=== PATIENT | female | born 1990 | race Caucasian/White ===

== ENCOUNTER 2017-08-11 06:34 | Emergency (ER) | payer MEDICAID ==
[2017-08-11] MEDS ORDERED: Sodium Chloride 0.9% 1,000 ML IV ONE (07:07)
[2017-08-11] MEDS ORDERED: Sodium Chloride 0.9% 10 ML Syringe FLUSH PRN (07:07)
[2017-08-11] MEDS ORDERED: Ondansetron 4 MG/2 ML SDV IVPUSH ONE (07:07)
[2017-08-11] MEDS ORDERED: Sodium Chloride 0.9% 2.5 ML Syringe FLUSH PRN (07:07)
--- NOTE | 2017-08-11 07:09 | EDM.PDOC ---
ED HPI GENERAL MEDICAL PROBLEM - General Chief Complaint: Abdominal Pain Stated Complaint: STOMACH PAIN Time Seen by Provider: 08/11/17 07:04 - History of Present Illness INITIAL COMMENTS - FREE TEXT/NARRATIVE: HISTORY AND PHYSICAL: History of present illness: The patient is a healthy 26 y/o female who presents with diffuse abdominal cramping vomiting and diarrhea that started about 12 midnight. She has no ill contacts at home and had no exotic travel or new foods that she can recall. Patient has no GI or history and has no abdominal surgical history. She says the pain is crampy and as all over and does not localize upper or lower right or left. She has no urinary complaints. Her vomiting is mostly of the food that she ate earlier it is not black or bloody and the diarrhea is watery but it is not black or bloody. Patient took no medications prior to coming here. Review of systems: As per history of present illness and below otherwise all systems reviewed and negative. Past medical history: As per history of present illness and as reviewed below otherwise noncontributory. Surgical history: As per history of present illness and as reviewed below otherwise noncontributory. Social history: No reported history of drug or alcohol abuse. Family history: As per history of present illness and as reviewed below otherwise noncontributory. Physical exam: General: Well-developed well-nourished overweight female who is nontoxic and vital signs are reviewed by me HEENT: Atraumatic, normocephalic, pupils reactive, negative for conjunctival pallor or scleral icterus, mucous membranes Accu throat clear, neck supple, nontender, trachea midline. Lungs: Clear to auscultation, breath sounds equal bilaterally, chest nontender. Heart: S1S2, regular rate and rhythm no overt murmurs Abdomen: Soft, nondistended, nontender. On palpation there is no discrete area of tenderness but there is some diffuse very mild tenderness on deep palpation without rebound or guarding. Bowel sounds are hyperactive Negative for masses or hepatosplenomegaly. Negative for costovertebral tenderness. Pelvis: Stable nontender. Genitourinary: Deferred. Rectal: Deferred. Extremities: Atraumatic, negative for cords or calf pain. Neurovascular unremarkable. Neuro: Awake, alert, oriented. Cranial nerves II through XII unremarkable. Cerebellum unremarkable. Motor and sensory unremarkable throughout. Exam nonfocal. Diagnostics: CBC CMP UA hCG amylase and lipase Therapeutics: IV fluids Zofran Toradol Bentyl She feels much improved and will be taking by mouth sips. She is aware of all testing results and care plan for home. Impression: Vomiting and diarrhea/abdominal cramping improved Definitive disposition and diagnosis as appropriate pending reevaluation and review of above. Abdomen Pain Score (Numeric/FACES): 10 - Related Data Allergies Allergy/AdvReac Type Severity Reaction Status Date / Time No Known Allergies Allergy Verified 08/11/17 06:46 Home Meds: Home Meds . [No Known Home Meds] 08/11/17 [History] Past Medical History HEENT History: Reports: None Cardiovascular History: Reports: None Respiratory History: Reports: None Gastrointestinal History: Reports: None Genitourinary History: Reports: None [employer] History: Reports: Musculoskeletal History: Reports: None Neurological History: Reports: None Psychiatric History: Reports: None Endocrine/Metabolic History: Reports: None Hematologic History: Reports: None Immunologic History: Reports: None Oncologic (Cancer) History: Reports: None Dermatologic History: Reports: None - Infectious Disease History Infectious Disease History: Reports: None - Past Surgical History Head Surgeries/Procedures: Reports: None Social & Family History - Family History Family Medical History: Noncontributory - Tobacco Use Smoking Status *Q: Never Smoker - Caffeine Use Caffeine Use: Reports: Coffee - Recreational Drug Use Recreational Drug Use: No ED ROS GENERAL - Review of Systems Review Of Systems: ROS reveals no pertinent complaints other than HPI. ED EXAM, GENERAL - Physical Exam Exam: See Below (See dictation) Course - Vital Signs Last Recorded V/S: Last Vital Signs Temp 36.2 C 08/11/17 06:40 Pulse 81 08/11/17 06:40 Resp 18 08/11/17 06:40 BP 139/90 08/11/17 06:40 Pulse Ox 98 08/11/17 06:40 - Orders/Labs/Meds Orders: Active Orders 24 hr Category Date Time Status UA W/MICROSCOPIC [URIN] Stat Lab 08/11/17 08:04 Ordered Sodium Chloride 0.9% [Saline Flush] Med 08/11/17 07:07 Active 10 ml FLUSH ASDIRECTED PRN Sodium Chloride 0.9% [Saline Flush] Med 08/11/17 07:07 Active 2.5 ml FLUSH ASDIRECTED PRN Saline Lock Insert [OM.PC] Stat Oth 08/11/17 07:06 Ordered Medication Orders Sodium Chloride (Saline Flush) 10 ml FLUSH ASDIRECTED PRN PRN Reason: Keep Vein Open Last Admin: 08/11/17 07:20 Dose: 10 ml Sodium Chloride (Saline Flush) 2.5 ml FLUSH ASDIRECTED PRN PRN Reason: Keep Vein Open Last Admin: 08/11/17 07:20 Dose: 2.5 ml Labs: Laboratory Tests 08/11/17 08/11/17 08/11/17 Range/Units 06:45 06:45 06:45 WBC 4.62 (4.0-11.0) K/uL RBC 5.29 (4.30-5.90) M/uL Hgb 15.3 (12.0-16.0) g/dL Hct 44.7 (36.0-46.0) % MCV 84.5 (80.0-98.0) fL MCH 28.9 (27.0-32.0) pg MCHC 34.2 (31.0-37.0) g/dL RDW Std Deviation 39.9 (28.0-62.0) fl RDW Coeff of Mary Grace 13 (11.0-15.0) % Plt Count 259 (150-400) K/uL MPV 11.20 (7.40-12.00) fL Neut % (Auto) 45.3 L (48.0-80.0) % Lymph % (Auto) 43.7 H (16.0-40.0) % [place] % (Auto) 9.5 (0.0-15.0) % Eos % (Auto) 1.3 (0.0-7.0) % Baso % (Auto) 0.2 (0.0-1.5) % Neut # (Auto) 2.1 (1.4-5.7) K/uL Lymph # (Auto) 2.0 (0.6-2.4) K/uL [place] # (Auto) 0.4 (0.0-0.8) K/uL Eos # (Auto) 0.1 (0.0-0.7) K/uL Baso # (Auto) 0.0 (0.0-0.1) K/uL Nucleated RBC % 0.0 /100WBC Nucleated RBCs # 0 K/uL Sodium 139 (136-145) mmol/L Potassium 3.9 (3.5-5.1) mmol/L Chloride 103 (98-107) mmol/L Carbon Dioxide 25.3 (21.0-32.0) mmol/L BUN 14 (7.0-18.0) mg/dL Creatinine 0.8 (0.6-1.0) mg/dL Est Cr Clr Drug Dosing 95.89 mL/min Estimated GFR (MDRD) > 60.0 ml/min Glucose 132 H (74-106) mg/dL Calcium 9.7 (8.5-10.1) mg/dL Total Bilirubin 0.5 (0.2-1.0) mg/dL AST 26 (15-37) IU/L ALT 32 (14-63) IU/L Alkaline Phosphatase 49 (46-116) U/L Total Protein 8.1 (6.4-8.2) g/dL Albumin 4.1 (3.4-5.0) g/dL Globulin 4.0 H (2.0-3.5) g/dL Albumin/Globulin Ratio 1.0 L (1.3-2.8) Amylase 89 (25-115) U/L Lipase 147 (73-393) U/L HCG, Qual NEGATIVE (NEG) Urine Color Urine Appearance Urine pH (5.0-8.0) Ur Specific [place] (1.001-1.035) Urine Protein (NEGATIVE) mg/dL Urine Glucose (UA) (NEGATIVE) mg/dL Urine Ketones (NEGATIVE) mg/dL Urine Occult Blood (NEGATIVE) Urine Nitrite (NEGATIVE) Urine Bilirubin (NEGATIVE) Urine Urobilinogen (<2.0) EU/dL Ur Leukocyte Esterase (NEGATIVE) Urine RBC (0-2/HPF) Urine WBC (0-5/HPF) Ur Epithelial Cells (NONE-FEW) Amorphous Sediment (NEGATIVE) Urine Bacteria (NEGATIVE) Urine Mucus (NONE-MOD) 08/11/17 Range/Units 08:04 WBC (4.0-11.0) K/uL RBC (4.30-5.90) M/uL Hgb (12.0-16.0) g/dL Hct (36.0-46.0) % MCV (80.0-98.0) fL MCH (27.0-32.0) pg MCHC (31.0-37.0) g/dL RDW Std Deviation (28.0-62.0) fl RDW Coeff of Mary Grace (11.0-15.0) % Plt Count (150-400) K/uL MPV (7.40-12.00) fL Neut % (Auto) (48.0-80.0) % Lymph % (Auto) (16.0-40.0) % [place] % (Auto) (0.0-15.0) % Eos % (Auto) (0.0-7.0) % Baso % (Auto) (0.0-1.5) % Neut # (Auto) (1.4-5.7) K/uL Lymph # (Auto) (0.6-2.4) K/uL [place] # (Auto) (0.0-0.8) K/uL Eos # (Auto) (0.0-0.7) K/uL Baso # (Auto) (0.0-0.1) K/uL Nucleated RBC % /100WBC Nucleated RBCs # K/uL Sodium (136-145) mmol/L Potassium (3.5-5.1) mmol/L Chloride (98-107) mmol/L Carbon Dioxide (21.0-32.0) mmol/L BUN (7.0-18.0) mg/dL Creatinine (0.6-1.0) mg/dL Est Cr Clr Drug Dosing mL/min Estimated GFR (MDRD) ml/min Glucose (74-106) mg/dL Calcium (8.5-10.1) mg/dL Total Bilirubin (0.2-1.0) mg/dL AST (15-37) IU/L ALT (14-63) IU/L Alkaline Phosphatase (46-116) U/L Total Protein (6.4-8.2) g/dL Albumin (3.4-5.0) g/dL Globulin (2.0-3.5) g/dL Albumin/Globulin Ratio (1.3-2.8) Amylase (25-115) U/L Lipase (73-393) U/L HCG, Qual (NEG) Urine Color YELLOW Urine Appearance CLEAR Urine pH 6.0 (5.0-8.0) Ur Specific [place] 1.025 (1.001-1.035) Urine Protein NEGATIVE (NEGATIVE) mg/dL Urine Glucose (UA) NEGATIVE (NEGATIVE) mg/dL Urine Ketones NEGATIVE (NEGATIVE) mg/dL Urine Occult Blood NEGATIVE (NEGATIVE) Urine Nitrite NEGATIVE (NEGATIVE) Urine Bilirubin NEGATIVE (NEGATIVE) Urine Urobilinogen 0.2 (<2.0) EU/dL Ur Leukocyte Esterase NEGATIVE (NEGATIVE) Urine RBC NONE SEEN (0-2/HPF) Urine WBC 0-1 (0-5/HPF) Ur Epithelial Cells FEW (NONE-FEW) Amorphous Sediment NOT SEEN (NEGATIVE) Urine Bacteria NOT SEEN (NEGATIVE) Urine Mucus LIGHT (NONE-MOD) Meds: Medications Generic Name Dose Route Start Last Admin Trade Name Freq PRN Reason Stop Dose Admin Sodium Chloride 10 ml 08/11/17 07:07 08/11/17 07:20 Saline Flush FLUSH 10 ml ASDIRECTED PRN Administration Keep Vein Open Sodium Chloride 2.5 ml 08/11/17 07:07 08/11/17 07:20 Saline Flush FLUSH 2.5 ml ASDIRECTED PRN Administration Keep Vein Open Discontinued Medications Generic Name Dose Route Start Last Admin Trade Name Freq PRN Reason Stop Dose Admin Dicyclomine HCl 20 mg 08/11/17 07:35 08/11/17 07:42 Bentyl PO 08/11/17 07:36 20 mg ONETIME ONE Administration Sodium Chloride 1,000 mls @ 999 mls/hr 08/11/17 07:07 08/11/17 07:19 Normal Saline IV 08/11/17 08:07 999 mls/hr STAT ONE Administration Ketorolac Tromethamine 30 mg 08/11/17 07:35 08/11/17 07:42 Toradol IVPUSH 08/11/17 07:36 30 mg ONETIME ONE Administration Ondansetron HCl 4 mg 08/11/17 07:07 08/11/17 07:19 Zofran IVPUSH 08/11/17 07:08 4 mg ONETIME ONE Administration Departure - Departure Time of Disposition: 09:32 Disposition: Home, Self-Care 01 Condition: Good Clinical Impression: Abdominal pain Qualifiers: Abdominal location: generalized Qualified Code(s): R10.84 - Generalized abdominal pain Diarrhea Qualifiers: Diarrhea type: unspecified type Qualified Code(s): R19.7 - Diarrhea, unspecified Vomiting Qualifiers: Vomiting type: unspecified Vomiting Intractability: non-intractable Nausea presence: with nausea Qualified Code(s): R11.2 - Nausea with vomiting, unspecified - Discharge Information Forms: ED Department Discharge Additional Instructions: The following information is given to patients seen in the emergency department who are being discharged to home. This information is to outline your options for follow-up care. We provide all patients seen in our emergency department with a follow-up referral. The need for follow-up, as well as the timing and circumstances, are variable depending upon the specifics of your emergency department visit. If you don't have a primary care physician on staff, we will provide you with a referral. We always advise you to contact your personal physician following an emergency department visit to inform them of the circumstance of the visit and for follow-up with them and/or the need for any referrals to a consulting specialist. The emergency department will also refer you to a specialist when appropriate. This referral assures that you have the opportunity for followup care with a specialist. All of these measure are taken in an effort to provide you with optimal care, which includes your followup. Under all circumstances we always encourage you to contact your private physician who remains a resource for coordinating your care. When calling for followup care, please make the office aware that this follow-up is from your recent emergency room visit. If for any reason you are refused follow-up, please contact the [facility] emergency department at and ask to speak to the emergency department charge nurse. [facility] Primary care- [place] [address] Please push sips of clear liquids and bland bites of food today and use medications as needed and directed. Avoid caffeinated products and heavy foods and creamy foods. Return to ER as needed and as discussed. Expect the symptoms to slowly improve over the next 12-24 hours. Please call and connect with one of our clinic providers in the next few days for reevaluation and further care - My Orders Last 24 Hours: My Active Orders 08/11/17 07:06 Saline Lock Insert [OM.PC] Stat 08/11/17 07:07 Sodium Chloride 0.9% [Saline Flush] 10 ml FLUSH ASDIRECTED PRN Sodium Chloride 0.9% [Saline Flush] 2.5 ml FLUSH ASDIRECTED PRN 08/11/17 08:04 UA W/MICROSCOPIC [URIN] Stat - Assessment/Plan Last 24 Hours: My Active Orders 08/11/17 07:06 Saline Lock Insert [OM.PC] Stat 08/11/17 07:07 Sodium Chloride 0.9% [Saline Flush] 10 ml FLUSH ASDIRECTED PRN Sodium Chloride 0.9% [Saline Flush] 2.5 ml FLUSH ASDIRECTED PRN 08/11/17 08:04 UA W/MICROSCOPIC [URIN] Stat
[2017-08-11 07:31] LABS: CHLORIDE,CL 103 mmol/L (98-107); SODIUM,NA 139 mmol/L (136-145)
[2017-08-11] MEDS ORDERED: Ketorolac 30 MG/ML SDV IVPUSH ONE (07:35)
[2017-08-11] MEDS ORDERED: Dicyclomine 10 MG Cap PO ONE (07:35)
== END 2017-08-11 09:45 | disposition home or self-care (01) ==
LOC: MW.ED 06:34
DX: R11.2 Nausea with vomiting, unspecified (principal); R10.84 Generalized abdominal pain; R19.7 Diarrhea, unspecified
CPT/HCPCS: 36415; 80053; 81001; 82150; 83690; 84703; 85025; 96361; 96374; 96375; 99284; A9270; J1885; J2405; J7040

== ENCOUNTER 2018-07-11 11:33 | Emergency (ER) | payer BC, MEDICAID ==
--- NOTE | 2018-07-11 11:43 | EDM.PDOC ---
ED HPI GENERAL MEDICAL PROBLEM - General Chief Complaint: Abdominal Pain Stated Complaint: STOMACH CRAMPS Time Seen by Provider: 07/11/18 11:34 Source of Information: Reports: Patient History Limitations: Reports: No Limitations - History of Present Illness INITIAL COMMENTS - FREE TEXT/NARRATIVE: HISTORY AND PHYSICAL: History of present illness: Patient is a 27-year-old female who presents to the emergency room with complaints of pelvic pain that radiates into her low back, irregular menstrual period and nausea. She states she does have a long-standing history of irregular menses associated with abdominal pain. She has seen multiple providers and has had ultrasounds along with lab work for this. She has used hormone therapy in the past, without much relief. She states she currently does not take any medications. Two weeks ago she started light vaginal bleeding, woke up this morning with intense pelvic pain. Patient denies any fever, chills , headache, change in vision, syncope or near syncope. Denies any chest pain, back pain, shortness of breath or cough. Denies any vomiting, diarrhea, constipation or dysuria. Has not noted any blood in urine or stool. Patient has been eating and drinking appropriately. Review of systems: As per history of present illness and below otherwise all systems reviewed and negative. Past medical history: As per history of present illness and as reviewed below otherwise noncontributory. Surgical history: As per history of present illness and as reviewed below otherwise noncontributory. Social history: See social history for further information Family history: As per history of present illness and as reviewed below otherwise noncontributory. Physical exam: General: Well-developed and well-nourished 27-year-old female. Alert and oriented. Nontoxic appearing and in no acute distress. HEENT: Atraumatic, normocephalic, pupils equal and reactive bilaterally, negative for conjunctival pallor or scleral icterus, mucous membranes moist, TMs normal bilaterally, throat clear, neck supple, nontender, trachea midline. No drooling or trismus noted. No meningeal signs. No hot potato voice noted. Lungs: Clear to auscultation, breath sounds equal bilaterally, chest nontender. Heart: S1S2, regular rate and rhythm without overt murmur Abdomen: Soft, nondistended, diffuse low abdominal tenderness. Negative for masses or hepatosplenomegaly. Negative for costovertebral tenderness. Pelvis: Stable nontender. Genitourinary: This was done with consent and a dehydrogenation converter operator at bedside. Rectal: Deferred. Skin: Intact, warm, dry. No lesions or rashes noted. Extremities: Atraumatic, moves all extremities per self without difficulty or deficits, negative for cords or calf pain. Neurovascular unremarkable. Neuro: Awake, alert, oriented. Cranial nerves II through XII unremarkable. Cerebellum unremarkable. Motor and sensory unremarkable throughout. Exam nonfocal. Notes: Patient reports that the last time she had her irregular menses/pelvic pain evaluated was 4-6 months ago in [place]. She states there is a chance of . No concerns of any STI's. She is agreeable to lab work and ultrasound at this time. We'll give her IV fluids and IV medications for comfort. Lab work and ultrasound results are within normal limits. Patient states she does feel better after the IV fluids and medications. We discussed the need for appropriate follow-up with her RN INFORMATICS or primary care provider for further evaluation and management of her irregular menses. Supportive care measures were reviewed and discussed. She voices understanding and is agreeable to plan of care. Denies any further questions or concerns at this time. Diagnostics: CBC, CMP, UA, urine , Transvaginal US Therapeutics: IV fluid, Toradol, Zofran Prescription: Diclofenac (#30) Impression: Dysfunctional Uterine Bleeding Pelvic Pain Plan: 1. Lab work and ultrasound are unremarkable. Please follow-up with your OBGYN as we discussed. 2. Diclofenac as prescribed. Take with food. 3. Return to the ED as needed and as discussed. Definitive disposition and diagnosis as appropriate pending reevaluation and review of above. Abdominal Pain Score (Numeric/FACES): 10 - Related Data Allergies Allergy/AdvReac Type Severity Reaction Status Date / Time No Known Allergies Allergy Verified 07/11/18 11:45 Home Meds: Home Meds Diclofenac Sodium [Voltaren] 75 mg PO BIDMEALS PRN #30 tab.cr 07/11/18 [Rx] Past Medical History - Past Health History Medical/Surgical History: Denies Medical/Surgical History HEENT History: Reports: None Cardiovascular History: Reports: None Respiratory History: Reports: None Gastrointestinal History: Reports: None Genitourinary History: Reports: None RN INFORMATICS History: Reports: Musculoskeletal History: Reports: None Neurological History: Reports: None Psychiatric History: Reports: None Endocrine/Metabolic History: Reports: None Hematologic History: Reports: None Immunologic History: Reports: None Oncologic (Cancer) History: Reports: None Dermatologic History: Reports: None - Infectious Disease History Infectious Disease History: Reports: None - Past Surgical History Head Surgeries/Procedures: Reports: None Social & Family History - Family History Family Medical History: Noncontributory - Caffeine Use Caffeine Use: Reports: Coffee ED ROS GENERAL - Review of Systems Review Of Systems: ROS reveals no pertinent complaints other than HPI. ED EXAM, GI/ABD - Physical Exam Exam: See Below (See dictation) Course - Vital Signs Last Recorded V/S: Last Vital Signs Temp 96.5 F 07/11/18 11:44 Pulse 76 07/11/18 13:47 Resp 18 07/11/18 13:47 BP 150/81 H 07/11/18 13:47 Pulse Ox 98 07/11/18 13:47 - Orders/Labs/Meds Labs: Laboratory Tests 07/11/18 07/11/18 07/11/18 Range/Units 12:05 12:05 12:10 WBC 4.83 (4.0-11.0) K/uL RBC 4.90 (4.30-5.90) M/uL Hgb 14.1 (12.0-16.0) g/dL Hct 42.8 (36.0-46.0) % MCV 87.3 (80.0-98.0) fL MCH 28.8 (27.0-32.0) pg MCHC 32.9 (31.0-37.0) g/dL RDW Std Deviation 42.6 (28.0-62.0) fl RDW Coeff of Mary Grace 13 (11.0-15.0) % Plt Count 227 (150-400) K/uL MPV 11.00 (7.40-12.00) fL Neut % (Auto) 42.5 L (48.0-80.0) % Lymph % (Auto) 45.5 H (16.0-40.0) % [place] % (Auto) 10.1 (0.0-15.0) % Eos % (Auto) 1.7 (0.0-7.0) % Baso % (Auto) 0.2 (0.0-1.5) % Neut # (Auto) 2.1 (1.4-5.7) K/uL Lymph # (Auto) 2.2 (0.6-2.4) K/uL [place] # (Auto) 0.5 (0.0-0.8) K/uL Eos # (Auto) 0.1 (0.0-0.7) K/uL Baso # (Auto) 0.0 (0.0-0.1) K/uL Nucleated RBC % 0.0 /100WBC Nucleated RBCs # 0 K/uL Sodium (136-145) mmol/L Potassium (3.5-5.1) mmol/L Chloride (98-107) mmol/L Carbon Dioxide (21.0-32.0) mmol/L BUN (7.0-18.0) mg/dL Creatinine (0.6-1.0) mg/dL Est Cr Clr Drug Dosing mL/min Estimated GFR (MDRD) ml/min Glucose (74-106) mg/dL Calcium (8.5-10.1) mg/dL Total Bilirubin (0.2-1.0) mg/dL AST (15-37) IU/L ALT (14-63) IU/L Alkaline Phosphatase (46-116) U/L Total Protein (6.4-8.2) g/dL Albumin (3.4-5.0) g/dL Globulin (2.6-4.0) g/dL Albumin/Globulin Ratio (0.9-1.6) Urine Color YELLOW Urine Appearance SLT CLOUDY Urine pH 8.0 (5.0-8.0) Ur Specific [place] 1.020 (1.001-1.035) Urine Protein NEGATIVE (NEGATIVE) mg/dL Urine Glucose (UA) NEGATIVE (NEGATIVE) mg/dL Urine Ketones NEGATIVE (NEGATIVE) mg/dL Urine Occult Blood LARGE H (NEGATIVE) Urine Nitrite NEGATIVE (NEGATIVE) Urine Bilirubin NEGATIVE (NEGATIVE) Urine Urobilinogen 0.2 (<2.0) EU/dL Ur Leukocyte Esterase NEGATIVE (NEGATIVE) Urine RBC 15-20 (0-2/HPF) Urine WBC 0-1 (0-5/HPF) Ur Epithelial Cells MANY (NONE-FEW) Amorphous Sediment MODERATE (NEGATIVE) Urine Bacteria FEW (NEGATIVE) Urine HCG, Qual NEGATIVE (NEGATIVE) 07/11/18 Range/Units 12:10 WBC (4.0-11.0) K/uL RBC (4.30-5.90) M/uL Hgb (12.0-16.0) g/dL Hct (36.0-46.0) % MCV (80.0-98.0) fL MCH (27.0-32.0) pg MCHC (31.0-37.0) g/dL RDW Std Deviation (28.0-62.0) fl RDW Coeff of Mary Grace (11.0-15.0) % Plt Count (150-400) K/uL MPV (7.40-12.00) fL Neut % (Auto) (48.0-80.0) % Lymph % (Auto) (16.0-40.0) % [place] % (Auto) (0.0-15.0) % Eos % (Auto) (0.0-7.0) % Baso % (Auto) (0.0-1.5) % Neut # (Auto) (1.4-5.7) K/uL Lymph # (Auto) (0.6-2.4) K/uL [place] # (Auto) (0.0-0.8) K/uL Eos # (Auto) (0.0-0.7) K/uL Baso # (Auto) (0.0-0.1) K/uL Nucleated RBC % /100WBC Nucleated RBCs # K/uL Sodium 139 (136-145) mmol/L Potassium 3.5 (3.5-5.1) mmol/L Chloride 106 (98-107) mmol/L Carbon Dioxide 25.2 (21.0-32.0) mmol/L BUN 13 (7.0-18.0) mg/dL Creatinine 0.6 (0.6-1.0) mg/dL Est Cr Clr Drug Dosing 116.50 mL/min Estimated GFR (MDRD) > 60.0 ml/min Glucose 89 (74-106) mg/dL Calcium 9.4 (8.5-10.1) mg/dL Total Bilirubin 0.5 (0.2-1.0) mg/dL AST 25 (15-37) IU/L ALT 36 (14-63) IU/L Alkaline Phosphatase 51 (46-116) U/L Total Protein 7.7 (6.4-8.2) g/dL Albumin 3.6 (3.4-5.0) g/dL Globulin 4.1 H (2.6-4.0) g/dL Albumin/Globulin Ratio 0.9 (0.9-1.6) Urine Color Urine Appearance Urine pH (5.0-8.0) Ur Specific [place] (1.001-1.035) Urine Protein (NEGATIVE) mg/dL Urine Glucose (UA) (NEGATIVE) mg/dL Urine Ketones (NEGATIVE) mg/dL Urine Occult Blood (NEGATIVE) Urine Nitrite (NEGATIVE) Urine Bilirubin (NEGATIVE) Urine Urobilinogen (<2.0) EU/dL Ur Leukocyte Esterase (NEGATIVE) Urine RBC (0-2/HPF) Urine WBC (0-5/HPF) Ur Epithelial Cells (NONE-FEW) Amorphous Sediment (NEGATIVE) Urine Bacteria (NEGATIVE) Urine HCG, Qual (NEGATIVE) Meds: Medications Discontinued Medications Generic Name Dose Route Start Last Admin Trade Name Freq PRN Reason Stop Dose Admin Sodium Chloride 1,000 mls @ 999 mls/hr 07/11/18 11:51 07/11/18 12:14 Normal Saline IV 07/11/18 12:51 999 mls/hr STAT ONE Administration Ketorolac Tromethamine 30 mg 07/11/18 11:51 07/11/18 12:15 Toradol IVPUSH 07/11/18 11:52 30 mg ONETIME ONE Administration Ondansetron HCl 4 mg 07/11/18 11:51 07/11/18 12:15 Zofran IVPUSH 07/11/18 11:52 4 mg ONETIME ONE Administration Departure - Departure Time of Disposition: 13:34 Disposition: Home, Self-Care 01 Clinical Impression: Dysfunctional uterine bleeding, Pelvic pain - Discharge Information Prescriptions: Diclofenac Sodium [Voltaren] 75 mg PO BIDMEALS PRN #30 tab.cr PRN Reason: Pain Instructions: Pelvic Pain, Female, [id number], Abnormal Uterine Bleeding, [id number] Referrals: PCP,None [Primary Care Provider] - Forms: ED Department Discharge Additional Instructions: The following information is given to patients seen in the emergency department who are being discharged to home. This information is to outline your options for follow-up care. We provide all patients seen in our emergency department with a follow-up referral. The need for follow-up, as well as the timing and circumstances, are variable depending upon the specifics of your emergency department visit. If you don't have a primary care physician on staff, we will provide you with a referral. We always advise you to contact your personal physician following an emergency department visit to inform them of the circumstance of the visit and for follow-up with them and/or the need for any referrals to a consulting specialist. The emergency department will also refer you to a specialist when appropriate. This referral assures that you have the opportunity for follow-up care with a specialist. All of these measure are taken in an effort to provide you with optimal care, which includes your follow-up. Under all circumstances we always encourage you to contact your private physician who remains a resource for coordinating your care. When calling for follow-up care, please make the office aware that this follow-up is from your recent emergency room visit. If for any reason you are refused follow-up, please contact the [facility] Emergency Department at and asked to speak to the emergency department charge nurse. [facility] [address] [place] [address] [place] [address] 1. Lab work and ultrasound are unremarkable. Please follow-up with your OBGYN or primary care provider as we discussed. 2. Diclofenac as prescribed. Take with food. 3. Return to the ED as needed and as discussed.
[2018-07-11] MEDS ORDERED: Ondansetron 4 MG/2 ML SDV IVPUSH ONE (11:51)
[2018-07-11] MEDS ORDERED: Sodium Chloride 0.9% 1,000 ML IV ONE (11:51)
[2018-07-11] MEDS ORDERED: Ketorolac 30 MG/ML SDV IVPUSH ONE (11:51)
[2018-07-11 12:59] LABS: CHLORIDE,CL 106 mmol/L (98-107); SODIUM,NA 139 mmol/L (136-145)
--- NOTE | 2018-07-11 13:31 | US ---
INDICATION: Pelvic pain for 4 days. Dysfunctional uterine bleeding. TECHNIQUE: Ultrasound pelvis transvaginal. Real time sonographic images with Spectral and color Doppler imaging of the ovaries were obtained. COMPARISON: None FINDINGS: Uterus: Measures 8.4 x 5.3 x 4.2 cm. Normal echotexture of the myometrium. No masses. Endometrium: Normal in thickness measuring 7 mm. No sign of endometrial mass or fluid. Right ovary: Measures 3.6 x 2.1 x 2.6 cm. Multiple small follicles noted. No ovarian or adnexal masses. Normal arterial and venous blood flow. Left ovary: Measures 3.1 x 1.8 x 3.0 cm. Small follicles noted. No ovarian or adnexal masses. Normal arterial and venous blood flow. Cul-de-sac: No significant free fluid. IMPRESSION: Normal pelvic ultrasound without acute abnormality identified. Dictated by Parker Salvador MD @ 07/11/2018 1:30:31 PM Dictated by: Parker Salvador MD @ 07/11/2018 13:30:44 (Electronically Signed)
== END 2018-07-11 13:48 | disposition home or self-care (01) ==
LOC: MW.ED 11:33
DX: N93.8 Other specified abnormal uterine and vaginal bleeding (principal)
CPT/HCPCS: 36415; 76830; 80053; 81001; 81025; 85025; 96361; 96374; 96375; 99284; J1885; J2405; J7040

== ENCOUNTER 2019-12-26 04:52 | Inpatient (IN) | payer BC, MEDICAID ==
[2019-12-26] MEDS ORDERED: Misoprostol 200 MCG Tab PO PRN (05:18)
[2019-12-26] MEDS ORDERED: Butorphanol 1 MG/ML SDV IVPUSH PRN (05:18)
[2019-12-26] MEDS ORDERED: Sodium Chloride 0.9% 2.5 ML Syringe FLUSH PRN (05:18)
[2019-12-26] MEDS ORDERED: Carboprost Tromethamine 250 MCG/1 ML Amp IM PRN (05:18)
[2019-12-26] MEDS ORDERED: Nalbuphine 10 MG/1 ML Vial IVPUSH PRN (05:18)
[2019-12-26] MEDS ORDERED: Sodium Chloride 0.9% 10 ML Syringe FLUSH PRN (05:18)
[2019-12-26] MEDS ORDERED: Lidocaine 1% 50 ML MDV INJECT PRN (05:18)
[2019-12-26] MEDS ORDERED: Ondansetron 4 MG/2 ML SDV IVPUSH PRN (05:18)
[2019-12-26] MEDS ORDERED: Sodium Chloride 0.9% 10 ML SDV IV PRN (05:18)
[2019-12-26] MEDS ORDERED: Tranexamic Acid 1,000 MG in Sodium Chloride 0.9% 100 ML IV PRN (05:18)
[2019-12-26] MEDS ORDERED: Water For Irrigation,Sterile 1,000 ML Container IRR PRN (05:18)
[2019-12-26] MEDS ORDERED: Methylergonovine 0.2 MG/1 ML Amp IM PRN (05:18)
[2019-12-26] MEDS ORDERED: Oxytocin/0.9 % Sodium Chloride 30 UNIT/500 ML BAG IV SCH (05:30)
[2019-12-26] MEDS ORDERED: Lactated Ringers 1,000 ML IV SCH (05:30)
--- NOTE | 2019-12-26 07:23 | PCM.LDHP ---
L&D History of Present Illness - General Date of Service: 12/26/19 Admit Problem/Dx: Patient Status Order with Admit Dx/Problem 12/26/19 05:19 Patient Status [ADT] Routine Admission Diagnosis/Problem Admission Diagnosis/Problem - planned 12/26/19 07:17 presenting to L&D in active labor at 40 5/7 weeks; MANISHA: 12/21/19. She reports SROM clear at 0440 and cayden approximately q4min. SVE per nurse report: 3 cm and grossly ruptured. Vertex presentation by Gail A-, rubella immune, GBS negative. Source of Information: Patient History Limitations: Reports: No Limitations - Related Data Allergies/Adverse Reactions: Allergies Allergy/AdvReac Type Severity Reaction Status Date / Time No Known Allergies Allergy Verified 12/22/19 16:50 Home Medications: Home Meds Omeprazole 20 mg PO ONETIME 12/22/19 [History] Pnv No.95/Ferrous Fum/Folic AC [ Vitamin Tablet] 1 tab PO DAILY 12/22/19 [History] Past Medical History - Past Health History Medical/Surgical History: Denies Medical/Surgical History HEENT History: Reports: None Cardiovascular History: Reports: None Respiratory History: Reports: None Gastrointestinal History: Reports: None Genitourinary History: Reports: None INSPECTOR PLATING History: Reports: Musculoskeletal History: Reports: None Neurological History: Reports: None Psychiatric History: Reports: None Endocrine/Metabolic History: Reports: None Hematologic History: Reports: None Immunologic History: Reports: None Oncologic (Cancer) History: Reports: None Dermatologic History: Reports: None - Infectious Disease History Infectious Disease History: Reports: None - Past Surgical History Head Surgeries/Procedures: Reports: None Social & Family History - Family History Family Medical History: Noncontributory - Tobacco Use Smoking Status *Q: Never Smoker Second Hand Smoke Exposure: No - Caffeine Use Caffeine Use: Reports: Coffee, Soda, Tea - Recreational Drug Use Recreational Drug Use: No H&P Review of Systems - Review of Systems: Review Of Systems: See Below General: Reports: No Symptoms HEENT: Reports: No Symptoms Pulmonary: Reports: No Symptoms Cardiovascular: Reports: No Symptoms Gastrointestinal: Reports: No Symptoms Genitourinary: Reports: No Symptoms Musculoskeletal: Reports: No Symptoms Skin: Reports: No Symptoms Psychiatric: Reports: No Symptoms Neurological: Reports: No Symptoms Hematologic/Lymphatic: Reports: No Symptoms Immunologic: Reports: No Symptoms L&D Exam - Exam Exam: See Below - Vital Signs Weight: 261 lb - OB Specific Movement: Active Heart Tones: Present Heart Rate (FHR) Variability: Moderate (6-25 bmp) Presentation: Vertex (by Chet's) - Salas Score Salas Score Cervix Position: Midposition Salas Score Consistency: Soft Salas Score Effacement: 51-70% Salas Score Dilation: 3-4 cm Salas Score Infant's Station: -2 Salas Score Total: 8 - Exam General: Alert, Oriented, Cooperative Lungs: Normal Respiratory Effort Cardiovascular: Regular Rate, Regular Rhythm GI/Abdominal Exam: Soft, Non-Tender Rectal Exam: Deferred Genitourinary: Deferred Back Exam: Normal Inspection, Full Range of Motion Extremities: Normal Inspection, Normal Range of Motion, Non-Tender, Normal Capillary Refill Skin: Warm, Dry, Intact Neurological: Strength Equal Bilateral, Normal Speech, Normal Tone, Sensation Intact Psychiatric: Alert, Normal Affect, Normal Mood - Patient Data Lab Results Last 24 hrs: Laboratory Results - last 24 hr 12/26/19 12/26/19 12/26/19 Range/Units 06:03 06:03 06:08 WBC 5.37 (4.0-11.0) K/uL RBC 4.46 (4.30-5.90) M/uL Hgb 11.6 L (12.0-16.0) g/dL Hct 37.4 (36.0-46.0) % MCV 83.9 (80.0-98.0) fL MCH 26.0 L (27.0-32.0) pg MCHC 31.0 (31.0-37.0) g/dL RDW Std Deviation 44.8 (28.0-62.0) fl RDW Coeff of Mary Grace 15 (11.0-15.0) % Plt Count 187 (150-400) K/uL MPV 11.50 (7.40-12.00) fL Nucleated RBC % 0.0 /100WBC Nucleated RBCs # 0 K/uL SARS-CoV-2 RNA (JENNIFFER) NEGATIVE (NEGATIVE) Blood Type A NEGATIVE Antibody Screen NEGATIVE Result Diagrams: 12/26/19 06:03 - Problem List (1) Supervision of normal IUP (intrauterine ) in multigravida SNOMED Code(s): 816031413, 521189436, 853326950 ICD Code: Z34.80 - ENCOUNTER FOR SUPRVSN OF NORMAL , UNSP TRIMESTER Status: Acute Priority: High Current Visit: Yes Qualifiers: Trimester: third trimester Qualified Code(s): Z34.83 - Encounter for supervision of other normal , third trimester Problem List Initiated/Reviewed/Updated: Yes Orders Last 24hrs: Active Orders 24 hr Category Date Time Status Patient Status [ADT] Routine ADT 12/26/19 05:19 Active Heart Tones [RC] CONTINUOUS Care 12/26/19 05:19 Active Non Stress Test [RC] PER UNIT ROUTINE Care 12/26/19 05:19 Active May Shower [RC] ASDIRECTED Care 12/26/19 05:19 Active Notify Provider [RC] PRN Care 12/26/19 05:19 Active Up ad Hali [RC] ASDIRECTED Care 12/26/19 05:19 Active Vaginal Exam [RC] PRN Care 12/26/19 05:19 Active Vital Signs [RC] PER UNIT ROUTINE Care 12/26/19 05:19 Active RPR (SYPHILIS SERO) W/ RFLX [REF] Routine Lab 12/26/19 06:03 Received Butorphanol [Stadol] Med 12/26/19 05:18 Active 1 mg IVPUSH Q1H PRN Carboprost Tromethamine [Hemabate DS] Med 12/26/19 05:18 Active 250 mcg IM ASDIRECTED PRN Lactated Ringers [Ringers, Lactated] 1,000 ml Med 12/26/19 05:30 Active IV ASDIRECTED Lidocaine 1% [Xylocaine 1%] Med 12/26/19 05:18 Active 50 ml INJECT ONETIME PRN Methylergonovine [Methergine] Med 12/26/19 05:18 Active 0.2 mg IM ASDIRECTED PRN Nalbuphine [Nubain] Med 12/26/19 05:18 Active 10 mg IVPUSH Q1H PRN Ondansetron [Zofran] Med 12/26/19 05:18 Active 4 mg IVPUSH Q4H PRN Oxytocin/0.9 % Sodium Chloride [Oxytocin 30 Unit/500 ML Med 12/26/19 05:30 Active -NS] 30 unit in 500 ml IV TITRATE Sodium Chloride 0.9% [Normal Saline] Med 12/26/19 05:18 Active 10 ml IV ASDIRECTED PRN Sodium Chloride 0.9% [Saline Flush] Med 12/26/19 05:18 Active 10 ml FLUSH ASDIRECTED PRN Sodium Chloride 0.9% [Saline Flush] Med 12/26/19 05:18 Active 2.5 ml FLUSH ASDIRECTED PRN Tranexamic Acid [Cyklokapron] 1,000 mg Med 12/26/19 05:18 Active Sodium Chloride 0.9% [Normal Saline] 100 ml IV ONETIME Water For Irrigation,Sterile [Sterile Water for Med 12/26/19 05:18 Active Irrigation] 1,000 ml IRR ASDIRECTED PRN miSOPROStoL [Cytotec] Med 12/26/19 05:18 Active 200 mcg PO ONETIME PRN Scalp Electrode [WOMSER] Per Unit Routine Oth 12/26/19 05:19 Ordered Peripheral IV Insertion Adult [OM.PC] Routine Oth 12/26/19 05:19 Ordered Resuscitation Status Routine Resus Stat 12/26/19 05:18 Ordered Medication Orders Butorphanol Tartrate (Stadol) 1 mg IVPUSH Q1H PRN PRN Reason: Pain Carboprost Tromethamine (Hemabate Ds) 250 mcg IM ASDIRECTED PRN PRN Reason: Post Hemorrhage Oxytocin/Sodium Chloride (Oxytocin 30 Unit/500 Ml-Ns) 30 unit in 500 mls @ 500 mls/hr IV TITRATE CANDICE Tranexamic Acid 1,000 mg/ (Sodium Chloride) 110 mls @ 660 mls/hr IV ONETIME PRN PRN Reason: Bleeding Lactated Ringer's (Ringers, Lactated) 1,000 mls @ 150 mls/hr IV ASDIRECTED CANDICE Lidocaine HCl (Xylocaine 1%) 50 ml INJECT ONETIME PRN PRN Reason: Laceration repair Methylergonovine Maleate (Methergine) 0.2 mg IM ASDIRECTED PRN PRN Reason: Post Hemorrhage Misoprostol (Cytotec) 200 mcg PO ONETIME PRN PRN Reason: Post Hemorrhage Nalbuphine HCl (Nubain) 10 mg IVPUSH Q1H PRN PRN Reason: Pain (severe 7-10) Ondansetron HCl (Zofran) 4 mg IVPUSH Q4H PRN PRN Reason: Nausea/Vomiting Sodium Chloride (Saline Flush) 10 ml FLUSH ASDIRECTED PRN PRN Reason: Keep Vein Open Sodium Chloride (Saline Flush) 2.5 ml FLUSH ASDIRECTED PRN PRN Reason: Keep Vein Open Sodium Chloride (Normal Saline) 10 ml IV ASDIRECTED PRN PRN Reason: IV Use Sterile Water (Sterile Water For Irrigation) 1,000 ml IRR ASDIRECTED PRN PRN Reason: delivery Assessment/Plan Comment:: Admit A: presenting to L&D in active labor at 40 5/7 weeks; MANISHA: 12/21/19. She reports SROM clear at 0440 and cayden approximately q4min. SVE per nurse report: 3 cm and grossly ruptured. Vertex presentation by Chet's. A-, rubella immune, GBS negative. P: Admit for labor; anticipate ; epidural PRN; Dr. Salvador updated.
--- NOTE | 2019-12-26 13:04 | PCM.DEL ---
L & D Note - General Info Date of Service: 12/26/19 Mother's Due Date: 12/21/19 - Delivery Note Labor: Spontaneous Delivery Outcome: Livebirth Infant Delivery Mode: Spontaneous Presentation: Vertex (by Brendan) Nuchal Cord: Present Anesthesia Type: None Amniotic Fluid Description: Clear Episiotomy Type: None Laceration: None Placenta: Intact, Spontaneous Cord: 3 Vessels Estimated Blood Loss: 150 Score 1 min: 7 Score 5 min: 9 Second Stage Interventions: Reports: Pushing, Pulls Own Legs Back Delivery Comments (Free Text/Narrative):: of viable female, head delivered with good pushing. Nuchal x1 noted and reduced over head. shoulders and body followed easily. Infant to mother abd with RN at for evaluation. Delayed cord clamping for a minuet or two. Cord clamped and cut. Pitocin to IVF. Cord blood collected. Placenta delivered grossly intact. 3VC. EBL 150cc. APGARS 7/9, wt pending. Mother and baby left in recovery bonding well. - General Info Date of Service: 12/26/19 Admission Dx/Problem (Free Text): Patient Status Order with Admit Dx/Problem 12/26/19 05:19 Patient Status [ADT] Routine Admission Diagnosis/Problem Admission Diagnosis/Problem - planned 12/26/19 07:17 presenting to L&D in active labor at 40 5/7 weeks; MANISHA: 12/21/19. She reports SROM clear at 0440 and cayden approximately q4min. SVE per nurse report: 3 cm and grossly ruptured. Vertex presentation by Brendan. A-, rubella immune, GBS negative. Functional Status: Reports: Pain Controlled, Tolerating Diet - Review of Systems General: Reports: No Symptoms HEENT: Reports: No Symptoms Pulmonary: Reports: No Symptoms Cardiovascular: Reports: No Symptoms Gastrointestinal: Reports: No Symptoms Genitourinary: Reports: No Symptoms Musculoskeletal: Reports: No Symptoms Skin: Reports: No Symptoms Neurological: Reports: No Symptoms Psychiatric: Reports: No Symptoms - Patient Data Weight - Most Recent: 118.388 kg Lab Results Last 24 Hours: Laboratory Results - last 24 hr 12/26/19 12/26/19 12/26/19 Range/Units 06:03 06:03 06:08 WBC 5.37 (4.0-11.0) K/uL RBC 4.46 (4.30-5.90) M/uL Hgb 11.6 L (12.0-16.0) g/dL Hct 37.4 (36.0-46.0) % MCV 83.9 (80.0-98.0) fL MCH 26.0 L (27.0-32.0) pg MCHC 31.0 (31.0-37.0) g/dL RDW Std Deviation 44.8 (28.0-62.0) fl RDW Coeff of Mary Grace 15 (11.0-15.0) % Plt Count 187 (150-400) K/uL MPV 11.50 (7.40-12.00) fL Nucleated RBC % 0.0 /100WBC Nucleated RBCs # 0 K/uL SARS-CoV-2 RNA (JENNIFFER) NEGATIVE (NEGATIVE) Blood Type A NEGATIVE Antibody Screen NEGATIVE Med Orders - Current: Current Medications Butorphanol Tartrate (Stadol) 1 mg IVPUSH Q1H PRN PRN Reason: Pain Last Admin: 12/26/19 09:08 Dose: 1 mg Documented by: Carboprost Tromethamine (Hemabate Ds) 250 mcg IM ASDIRECTED PRN PRN Reason: Post Hemorrhage Oxytocin/Sodium Chloride (Oxytocin 30 Unit/500 Ml-Ns) 30 unit in 500 mls @ 500 mls/hr IV TITRATE [facility] Tranexamic Acid 1,000 mg/ (Sodium Chloride) 110 mls @ 660 mls/hr IV ONETIME PRN PRN Reason: Bleeding Lactated Ringer's (Ringers, Lactated) 1,000 mls @ 150 mls/hr IV ASDIRECTED CANDICE Last Admin: 12/26/19 07:30 Dose: 150 mls/hr Documented by: Lidocaine HCl (Xylocaine 1%) 50 ml INJECT ONETIME PRN PRN Reason: Laceration repair Methylergonovine Maleate (Methergine) 0.2 mg IM ASDIRECTED PRN PRN Reason: Post Hemorrhage Misoprostol (Cytotec) 200 mcg PO ONETIME PRN PRN Reason: Post Hemorrhage Nalbuphine HCl (Nubain) 10 mg IVPUSH Q1H PRN PRN Reason: Pain (severe 7-10) Ondansetron HCl (Zofran) 4 mg IVPUSH Q4H PRN PRN Reason: Nausea/Vomiting Last Admin: 12/26/19 08:59 Dose: 4 mg Documented by: Sodium Chloride (Saline Flush) 10 ml FLUSH ASDIRECTED PRN PRN Reason: Keep Vein Open Sodium Chloride (Saline Flush) 2.5 ml FLUSH ASDIRECTED PRN PRN Reason: Keep Vein Open Sodium Chloride (Normal Saline) 10 ml IV ASDIRECTED PRN PRN Reason: IV Use Sterile Water (Sterile Water For Irrigation) 1,000 ml IRR ASDIRECTED PRN PRN Reason: delivery - Exam General: Alert, Oriented, Cooperative, No Acute Distress Lungs: Normal Respiratory Effort GI/Abdominal Exam: Soft, Non-Tender, Pelvis Stable (Female) Exam: Normal External Exam, Normal Bimanual Exam, Vaginal Bleeding. No: Vaginal Lesions, Vaginal Tears Back Exam: Full Range of Motion Extremities: Normal Inspection, No Pedal Edema, Normal Capillary Refill Skin: Warm, Dry, Intact Neurological: No New Focal Deficit, Normal Speech, Normal Tone, Strength Equal Bilateral, Sensation Intact Psy/Mental Status: Alert, Normal Affect, Normal Mood - Problem List & Annotations (1) (normal spontaneous vaginal delivery) SNOMED Code(s): 68306148, 453831654 Code(s): O80 - ENCOUNTER FOR FULL-TERM UNCOMPLICATED DELIVERY Status: Acute Priority: High Current Visit: Yes (2) Supervision of normal IUP (intrauterine ) in multigravida SNOMED Code(s): 168362187, 525919379, 034950458 Code(s): Z34.80 - ENCOUNTER FOR SUPRVSN OF NORMAL , UNSP TRIMESTER Status: Acute Priority: High Current Visit: Yes Qualifiers: Trimester: third trimester Qualified Code(s): Z34.83 - Encounter for supervision of other normal , third trimester - Problem List Review Problem List Initiated/Reviewed/Updated: Yes - Plan Plan:: Admit A: presenting to L&D in active labor at 40 5/7 weeks; MANISHA: 12/21/19. She reports SROM clear at 0440 and cayden approximately q4min. SVE per nurse report: 3 cm and grossly ruptured. Vertex presentation by Chet's. A-, rubella immune, GBS negative. P: Admit for labor; anticipate ; epidural PRN; Dr. Salvador updated. Delivery A: of female, APGARS 7/9, wt pending, EBL 150cc, Intact. Stable P: Routine pp plan of care
[2019-12-26] MEDS ORDERED: Ibuprofen 400 MG Tab PO PRN (13:06)
[2019-12-26] MEDS ORDERED: Benzocaine/Menthol 20%-0.5% Spray 78 GM Cannister TOP PRN (13:06)
[2019-12-26] MEDS ORDERED: Docusate Sodium 100 MG Cap PO PRN (13:06)
[2019-12-26] MEDS ORDERED: Bisacodyl 10 MG Supp RECTAL PRN (13:06)
[2019-12-26] MEDS ORDERED: Acetaminophen 500 MG Tab PO PRN (13:06)
[2019-12-26] MEDS ORDERED: Lanolin 100% Cream 7 GM Tube TOP PRN (13:06)
[2019-12-26] MEDS ORDERED: oxyCODONE 5 MG Tab PO PRN (13:06)
[2019-12-26] MEDS ORDERED: Witch Hazel Medicated Pads 40/Jar TOP PRN (13:06)
[2019-12-26] MEDS: Ibuprofen 800 MG Tab PO PRN ×2 (13:32→21:39)
[2019-12-26] MEDS: Acetaminophen 500 MG Tab PO PRN (17:22)
[2019-12-27] MEDS: Acetaminophen 500 MG Tab PO PRN (02:38)
--- NOTE | 2019-12-27 09:26 | PCM.DCSUM1 ---
Discharge Summary - Hospital Course Free Text/Narrative:: Discharge home with infant. Follow up in 6 weeks for visit. Diagnosis: Stroke: No Modified [place] Scale: No Symptoms at All Modified [place] Scale Score: 0 - Discharge Data Discharge Date: 12/27/19 Discharge Disposition: Home, Self-Care 01 Condition: Good - Referral to Home Health Primary Care Physician: PCP None - Discharge Diagnosis/Problem(s) (1) (normal spontaneous vaginal delivery) SNOMED Code(s): 82663991, 362063754 ICD Code: O80 - ENCOUNTER FOR FULL-TERM UNCOMPLICATED DELIVERY Status: Acute Priority: High Current Visit: Yes (2) Supervision of normal IUP (intrauterine ) in multigravida SNOMED Code(s): 177139016, 547396645, 944268142 ICD Code: Z34.80 - ENCOUNTER FOR SUPRVSN OF NORMAL , UNSP TRIMESTER Status: Acute Priority: High Current Visit: Yes Qualifiers: Trimester: third trimester Qualified Code(s): Z34.83 - Encounter for superv ision of other normal , third trimester - Patient Instructions Diet: Usual Diet as Tolerated Activity: As Tolerated, No Strenuous Activities, Rest and Relax Today Driving: May Drive Today Showering/Bathing: May Shower Notify Provider of: Fever, Increased Pain, Swelling and Redness Other/Special Instructions: Discharge home with infant. Follow up in 6 weeks for visit. - Discharge Plan *PRESCRIPTION DRUG MONITORING PROGRAM REVIEWED*: Not Applicable *COPY OF PRESCRIPTION DRUG MONITORING REPORT IN PATIENT IASBEL: Not Applicable Home Medications: Home Meds Omeprazole 20 mg PO ONETIME 12/22/19 [History] Pnv No.95/Ferrous Fum/Folic AC [ Vitamin Tablet] 1 tab PO DAILY 12/22/19 [History] Oxygen Therapy Mode: Room Air Patient Handouts: Baby Blues, Care After Vaginal Delivery Referrals: [facility] [Outside] Jyothi Garza, SHYLAM, [employer] [Mid-] - 02/07/20 2:00 pm - Discharge Summary/Plan Comment DC Time >30 min.: No - General Info Date of Service: 12/27/19 Admission Dx/Problem (Free Text: Patient Status Order with Admit Dx/Problem 12/26/19 05:19 Patient Status [ADT] Routine Admission Diagnosis/Problem Admission Diagnosis/Problem - planned 12/26/19 07:17 presenting to L&D in active labor at 40 5/7 weeks; MANISHA: 12/21/19. She reports SROM clear at 0440 and cayden approximately q4min. SVE per nurse report: 3 cm and grossly ruptured. Vertex presentation by Gail A-, rubella immune, GBS negative. Functional Status: Reports: Pain Controlled, Tolerating Diet, Ambulating, Urinating - Review of Systems General: Reports: No Symptoms HEENT: Reports: No Symptoms Pulmonary: Reports: No Symptoms Cardiovascular: Reports: No Symptoms Gastrointestinal: Reports: No Symptoms Genitourinary: Reports: No Symptoms Musculoskeletal: Reports: No Symptoms Skin: Reports: No Symptoms Neurological: Reports: No Symptoms Psychiatric: Reports: No Symptoms - Patient Data Vitals - Most Recent: Last Vital Signs Temp 36.7 C 12/27/19 08:56 Pulse 98 12/27/19 08:56 Resp 16 12/27/19 08:56 BP 122/70 12/27/19 08:56 Pulse Ox 99 12/27/19 08:56 Weight - Most Recent: 118.388 kg Med Orders - Current: Current Medications Acetaminophen (Tylenol Extra Strength) 500 mg PO Q4H PRN PRN Reason: Pain Acetaminophen (Tylenol Extra Strength) 1,000 mg PO Q4H PRN PRN Reason: Pain Last Admin: 12/27/19 02:38 Dose: 1,000 mg Documented by: Benzocaine/Menthol (Dermoplast Pain Relief 20%-0.5% Vancleave) 78 gm TOP ASDIRECTED PRN PRN Reason: Perineal Comfort Measure Last Admin: 12/26/19 13:32 Dose: 1 can Documented by: Bisacodyl (Dulcolax) 10 mg RECTAL ONETIME PRN PRN Reason: Constipation Docusate Sodium (Colace) 100 mg PO BID PRN PRN Reason: Constipation Last Admin: 12/27/19 09:06 Dose: 100 mg Documented by: Emollient Ointment (Lansinoh Hpa) 0 gm TOP ASDIRECTED PRN PRN Reason: Sore Nipples Ibuprofen (Motrin) 400 mg PO Q4H PRN PRN Reason: Pain Ibuprofen (Motrin) 800 mg PO Q6H PRN PRN Reason: Pain Last Admin: 12/26/19 21:39 Dose: 800 mg Documented by: Oxycodone HCl (Oxycodone) 5 mg PO Q2H PRN PRN Reason: Pain Witch Janny (Tucks) 1 pad TOP ASDIRECTED PRN PRN Reason: comfort care Last Admin: 12/26/19 13:32 Dose: 1 container Documented by: Discontinued Medications Butorphanol Tartrate (Stadol) 1 mg IVPUSH Q1H PRN PRN Reason: Pain Last Admin: 12/26/19 09:08 Dose: 1 mg Documented by: Carboprost Tromethamine (Hemabate Ds) 250 mcg IM ASDIRECTED PRN PRN Reason: Post Hemorrhage Oxytocin/Sodium Chloride (Oxytocin 30 Unit/500 Ml-Ns) 30 unit in 500 mls @ 500 mls/hr IV TITRATE CANDICE Last Admin: 12/26/19 12:45 Dose: 500 mls/hr Documented by: Tranexamic Acid 1,000 mg/ (Sodium Chloride) 110 mls @ 660 mls/hr IV ONETIME PRN PRN Reason: Bleeding Lactated Ringer's (Ringers, Lactated) 1,000 mls @ 150 mls/hr IV ASDIRECTED CANDICE Last Admin: 12/26/19 07:30 Dose: 150 mls/hr Documented by: Lidocaine HCl (Xylocaine 1%) 50 ml INJECT ONETIME PRN PRN Reason: Laceration repair Methylergonovine Maleate (Methergine) 0.2 mg IM ASDIRECTED PRN PRN Reason: Post Hemorrhage Misoprostol (Cytotec) 200 mcg PO ONETIME PRN PRN Reason: Post Hemorrhage Nalbuphine HCl (Nubain) 10 mg IVPUSH Q1H PRN PRN Reason: Pain (severe 7-10) Ondansetron HCl (Zofran) 4 mg IVPUSH Q4H PRN PRN Reason: Nausea/Vomiting Last Admin: 12/26/19 08:59 Dose: 4 mg Documented by: Sodium Chloride (Saline Flush) 10 ml FLUSH ASDIRECTED PRN PRN Reason: Keep Vein Open Sodium Chloride (Saline Flush) 2.5 ml FLUSH ASDIRECTED PRN PRN Reason: Keep Vein Open Sodium Chloride (Normal Saline) 10 ml IV ASDIRECTED PRN PRN Reason: IV Use Sterile Water (Sterile Water For Irrigation) 1,000 ml IRR ASDIRECTED PRN PRN Reason: delivery - Exam General: Reports: Alert, Oriented, Cooperative, No Acute Distress Cardiovascular: Reports: Regular Rhythm (Female) Exam: Deferred, Vaginal Bleeding Rectal (Female) Exam: Deferred Back Exam: Reports: Full Range of Motion Extremities: Normal Range of Motion Skin: Reports: Warm, Dry, Intact Neurological: Reports: No New Focal Deficit, Normal Speech, Normal Tone, Strength Equal Bilateral, Sensation Intact Psy/Mental Status: Reports: Alert, Normal Affect, Normal Mood
[2019-12-27] MEDS: Ibuprofen 800 MG Tab PO PRN (10:41)
== END 2019-12-27 18:30 | disposition home or self-care (01) | DRG 560 ==
LOC: MW.OBCHECK 04:52 → MW.OB 04:54 → MW.OBCHECK 05:19 → MW.OB 05:19 → OBSVTOIN 13:07 → MW.OB 16:34 → UNDODISIN 12-27 04:05
PROVIDERS: ADMIT Obstetrics & Gynecology; ATTEND Nurse Practitioner Women's Health
PROC: 10E0XZZ Delivery of Products of Conception, External Approach (ICD-10-PCS; principal; 2019-12-26)
PROC: 10907ZC Drainage of Amniotic Fluid, Therapeutic from Products of Conception, Via Natural or Artificial Opening (ICD-10-PCS; 2019-12-26)
DX: O48.0 Post-term pregnancy (principal); Z3A.40 40 weeks gestation of pregnancy; Z37.0 Single live birth; Z20.828 Contact with and (suspected) exposure to other viral communicable diseases
CPT/HCPCS: 36415; 59025; 59409; 85027; 86592; 86850; 86900; 86901; A9270-GY; J0595; J2405; J2590; J7120; U0002

== ENCOUNTER 2022-05-23 17:33 | Emergency (ER) | payer MEDICAID ==
[2022-05-23] MEDS ORDERED: Ondansetron 4 MG/2 ML SDV IVPUSH STA (18:51)
[2022-05-23] MEDS ORDERED: Sodium Chloride 0.9% 1,000 ML IV STA (18:51)
[2022-05-23 18:57] LABS: POTASSIUM,K 3.6 mmol/L (3.5-5.1)
[2022-05-23] MEDS ORDERED: Acetaminophen 1,000 MG in Premix Bag 1 BAG IV STA (19:35)
== END 2022-05-23 21:15 | disposition home or self-care (01) ==
LOC: MW.ED 17:33
DX: O23.41 Unspecified infection of urinary tract in pregnancy, first trimester (principal); N39.0 Urinary tract infection, site not specified; O21.9 Vomiting of pregnancy, unspecified; Z3A.01 Less than 8 weeks gestation of pregnancy
CPT/HCPCS: 36415; 76700; 80053; 81001; 83690; 84702; 85025; 87086; 96361; 96374; 96375; 99284; J0131; J2405; J7030

== ENCOUNTER 2022-05-29 11:52 | Emergency (ER) | payer MEDICAID ==
[2022-05-29] MEDS ORDERED: Lidocaine 5% 700 MG Patch TOP STA (14:03)
== END 2022-05-29 14:22 | disposition home or self-care (01) ==
LOC: MW.ED 11:52
DX: M25.561 Pain in right knee (principal); M25.562 Pain in left knee; W00.0XXA Fall on same level due to ice and snow, initial encounter
CPT/HCPCS: 73562; 99283; A9270

== ENCOUNTER 2022-06-30 18:29 | Emergency (ER) | payer MEDICAID ==
[2022-06-30] MEDS ORDERED: Sodium Chloride 0.9% 1,000 ML IV ONE (19:46)
[2022-06-30 19:51] LABS: BLOOD UREA NITROGEN,BUN 5 mg/dL (7.0-18.0); CARBON DIOXIDE,CO2 24.1 mmol/L (21.0-32.0); CHLORIDE,CL 103 mmol/L (98-107); GLUCOSE RANDOM 104 mg/dL (74-106); POTASSIUM,K 3.6 mmol/L (3.5-5.1); SODIUM,NA 137 mmol/L (136-145)
[2022-06-30 19:52] LABS: ESTIMATED GFR 119 mL/min (>60)
[2022-06-30] MEDS ORDERED: Ondansetron 4 MG/2 ML SDV IVPUSH ONE (20:11)
[2022-06-30] MEDS ORDERED: Cephalexin 500 MG Cap PO ONE (21:44)
== END 2022-06-30 22:29 | disposition home or self-care (01) ==
LOC: MW.ED 18:29
DX: O20.0 Threatened abortion (principal); O23.41 Unspecified infection of urinary tract in pregnancy, first trimester; N39.0 Urinary tract infection, site not specified; Z3A.10 10 weeks gestation of pregnancy
CPT/HCPCS: 36415; 76817; 80053; 81001; 84702; 85025; 86850; 86900; 86901; 87086; 90384; 96361; 96374; 99284; A9270; J2405; J7030; J2790

== ENCOUNTER 2022-07-06 11:48 | Emergency (ER) | payer MEDICAID ==
[2022-07-06] MEDS ORDERED: Lactated Ringers 1,000 ML IV ONE (12:04)
[2022-07-06 12:25] LABS: CARBON DIOXIDE,CO2 26.8 mmol/L (21.0-32.0); POTASSIUM,K 3.7 mmol/L (3.5-5.1)
[2022-07-06] MEDS ORDERED: Ondansetron 4 MG/2 ML SDV IVPUSH ONE (15:05)
== END 2022-07-06 15:39 | disposition home or self-care (01) ==
LOC: MW.ED 11:48
DX: O03.9 Complete or unspecified spontaneous abortion without complication (principal)
CPT/HCPCS: 76817; 80053; 84702; 85025; 96361; 96374; 99285; J2405; J7120

== ENCOUNTER 2022-07-08 15:51 | Emergency (ER) | payer MEDICAID ==
[2022-07-08] MEDS ORDERED: LORazepam 1 MG Tab PO ONE (16:51)
== END 2022-07-08 19:18 | disposition home or self-care (01) ==
LOC: MW.ED 15:51
DX: K59.00 Constipation, unspecified (principal); R33.9 Retention of urine, unspecified; Z79.899 Other long term (current) drug therapy
CPT/HCPCS: 74018; 81001; 99283; A9270

== ENCOUNTER 2022-11-20 18:49 | Emergency (ER) | payer MEDICAID ==
[2022-11-20 20:00] LABS: APPEARANCE,URINE CLEAR; BILIRUBIN,URINE NEGATIVE (NEGATIVE); COLOR,URINE YELLOW; GLUCOSE,URINE NEGATIVE (NEGATIVE); KETONES,URINE NEGATIVE (NEGATIVE); LEUKOCYTE ESTERASE,URINE SMALL (NEGATIVE); NITRITE,URINE NEGATIVE (NEGATIVE); OCCULT BLOOD,URINE NEGATIVE (NEGATIVE); PH,URINE 6.5 (5.0-8.0); PROTEIN,URINE NEGATIVE (NEGATIVE); UROBILINOGEN,URINE 0.2 EU/dL (<2.0)
[2022-11-20] MEDS ORDERED: Acetaminophen 325 MG Tab PO ONE (20:00)
[2022-11-20 20:15] LABS: BACTERIA,URINE RARE (NEGATIVE); EPITHELIAL CELLS,URINE FEW (NONE-FEW); RBC,URINE 0-1 (0-2/HPF)
[2022-11-20] MEDS ORDERED: Lidocaine 4% 1 each Patch TOP SCH (20:15)
[2022-11-20 20:25] LABS: BASOPHILS PERCENT AUTO 0.3 % (0.0-1.5); EOSINOPHILS ABSOLUTE AUTO 0.1 K/uL (0.0-0.7); EOSINOPHILS PERCENT AUTO 0.9 % (0.0-7.0); HEMATOCRIT 38.6 % (36.0-46.0); LYMPHOCYTES ABSOLUTE AUTO 2.3 K/uL (0.6-2.4); LYMPHOCYTES PERCENT AUTO 39.3 % (16.0-40.0); MEAN CORPUSCULAR HEMOGLOBIN 28.4 pg (27.0-32.0); MEAN CORPUSCULAR HGB CONC 33.7 g/dL (31.0-37.0); MEAN CORPUSCULAR VOLUME 84.5 fL (80.0-98.0); MONOCYTES ABSOLUTE AUTO 0.5 K/uL (0.0-0.8); NEUTROPHILS PERCENT AUTO 51.5 % (48.0-80.0); NRBC ABSOLUTE 0 K/uL; PLATELET COUNT,PLT 228 K/uL (150-400); RED BLOOD CELL COUNT 4.57 M/uL (4.30-5.90); WHITE BLOOD CELL COUNT,WBC 5.75 K/uL (4.0-11.0)
[2022-11-20 21:08] LABS: A/G RATIO 0.8 (0.9-1.6); ALBUMIN 3.2 g/dL (3.4-5.0); BILIRUBIN TOTAL 0.4 mg/dL (0.2-1.0); CALCIUM 9.3 mg/dL (8.5-10.1); CARBON DIOXIDE,CO2 25.1 mmol/L (21.0-32.0); CREATININE 0.6 mg/dL (0.6-1.0); EST CRCL DRUG DOSING (CG) 116.24 mL/min; POTASSIUM,K 4.1 mmol/L (3.5-5.1); PROTEIN TOTAL,TP 7.4 g/dL (6.4-8.2)
== END 2022-11-20 21:42 | disposition home or self-care (01) ==
LOC: MW.ED 18:49
DX: O99.891 Other specified diseases and conditions complicating pregnancy (principal); R10.2 Pelvic and perineal pain; R51.9 Headache, unspecified; R53.83 Other fatigue; R63.0 Anorexia; Z3A.14 14 weeks gestation of pregnancy; Z20.822 Contact with and (suspected) exposure to COVID-19
CPT/HCPCS: 36415; 76801; 80053; 81001; 85025; 87086; 87635; 99284; A9270; 99283; U0002

== ENCOUNTER 2023-01-25 14:29 | Emergency (ER) | payer MEDICAID | END 2023-01-25 15:47 | disposition home or self-care (01) | LOC: MW.ED 14:29 | DX: O99.612 Diseases of the digestive system complicating pregnancy, second trimester (principal); O99.892 Other specified diseases and conditions complicating childbirth; R03.0 Elevated blood-pressure reading, without diagnosis of hypertension; Z3A.23 23 weeks gestation of pregnancy | CPT/HCPCS: 99283 ==

== ENCOUNTER 2023-04-28 17:47 | Emergency (ER) | payer MEDICAID ==
[2023-04-28 19:06] LABS: CORONAVIRUS COVID-19 NAA NEGATIVE (NEGATIVE); INFLUENZA A NAA NEGATIVE (NEGATIVE); INFLUENZA B NAA NEGATIVE (NEGATIVE); RESPIRATORY SYNCYTIAL VIR NAA NEGATIVE (NEGATIVE)
== END 2023-04-28 19:37 | disposition home or self-care (01) ==
LOC: MW.ED 17:47
DX: O99.519 Diseases of the respiratory system complicating pregnancy, unspecified trimester (principal); J32.9 Chronic sinusitis, unspecified; Z3A.36 36 weeks gestation of pregnancy
CPT/HCPCS: 0241U; 99284; 99283

== ENCOUNTER 2024-09-26 07:40 | Emergency (ER) | payer MEDICAID ==
[2024-09-26 09:08] LABS: BASOPHILS ABSOLUTE AUTO 0.04 K/uL (0.00-0.20); BASOPHILS PERCENT AUTO 0.6 % (0.0-1.0); EOSINOPHILS ABSOLUTE AUTO 0.18 K/uL (0.00-0.45); EOSINOPHILS PERCENT AUTO 2.8 % (0.0-6.0); IMMATURE GRAN ABSOLUTE AUTO 0.02 K/uL (0.00-0.05); IMMATURE GRAN PERCENT AUTO 0.3 % (0.0-0.4); LYMPHOCYTES ABSOLUTE AUTO 1.58 K/uL (1.00-4.80); LYMPHOCYTES PERCENT AUTO 24.7 % (24.0-44.0); MEAN PLATELET VOLUME 10.7 fL (9.4-12.3); MONOCYTES ABSOLUTE AUTO 0.62 K/uL (0.00-0.80); MONOCYTES PERCENT AUTO 9.7 % (0.0-8.0); NEUTROPHILS ABSOLUTE AUTO 3.95 K/uL (1.80-7.70); NEUTROPHILS PERCENT AUTO 61.9 % (41.0-71.0); NRBC ABSOLUTE 0.00 K/uL (0.00-0.02); NRBC PERCENT 0.0 /100WBC (0.0-0.2); PLATELET COUNT,PLT 297 K/uL (150-400); RED BLOOD CELL COUNT 4.76 M/uL (4.10-5.30); WHITE BLOOD CELL COUNT,WBC 6.39 K/uL (3.9-11.3)
[2024-09-26] MEDS: Ondansetron 4 MG Tab.DIS PO ONE (09:16)
[2024-09-26 09:38] LABS: A/G RATIO 0.5 (0.9-1.6); ALANINE AMINOTRANSFERASE,ALT 26.0 IU/L (14-63); ASPARTATE AMNIOTRANSFERASE,AST 15.0 IU/L (15-37); BILIRUBIN TOTAL 0.5 mg/dL (0.2-1.0); BLOOD UREA NITROGEN,BUN 9.0 mg/dL (7.0-18.0); CARBON DIOXIDE,CO2 29.9 mmol/L (21.0-32.0); CHLORIDE,CL 103.0 mmol/L (98-107); CREATININE 0.7 mg/dL (0.6-1.0); EST CRCL DRUG DOSING (CG) 98.71 mL/min; GLUCOSE RANDOM 106.0 mg/dL (74-106); POTASSIUM,K 3.7 mmol/L (3.5-5.1); PROTEIN TOTAL,TP 8.0 g/dL (6.4-8.2); SODIUM,NA 140.0 mmol/L (136-145)
[2024-09-26 09:43] LABS: ESTIMATED GFR 117.0 mL/min (>60)
== END 2024-09-26 09:40 | disposition home or self-care (01) ==
LOC: MW.ED 07:40
DX: J18.9 Pneumonia, unspecified organism (principal); E66.9 Obesity, unspecified; Z75.3 Unavailability and inaccessibility of health-care facilities; Z79.899 Other long term (current) drug therapy; Z68.41 Body mass index [BMI] 40.0-44.9, adult
CPT/HCPCS: 36415; 71046; 80053; 84703; 85025; 94640; A9270; J7620; 99283; 99284